=== PATIENT | female | born 1985 | race African-American/Black ===

== ENCOUNTER 2018-08-22 20:15 | Observation (INO) | payer OTHER ==
[2018-08-22 22:18] LABS: ADD UMIC YES; UR ASCORBIC ACID NEGATIVE (NEGATIVE); UR BACTERIA FEW /HPF (NONE SEEN); UR BILIRUBIN (Dip) NEGATIVE (NEGATIVE); UR BLOOD (Dip) NEGATIVE (NEGATIVE); UR CLARITY SLIGHTLY CLOUDY (CLEAR); UR COLOR YELLOW (YELLOW); UR GLUCOSE (Dip) NEGATIVE (NEGATIVE); UR KETONES (Dip) NEGATIVE (NEGATIVE); UR LEUKOCYTE ESTERASE (Dip) 2+ Leu/ul (NEGATIVE); UR NITRITE (Dip) NEGATIVE (NEGATIVE); UR RBC 3 /HPF (0-5); UR SPECIFIC GRAVITY (Dip) 1.012 (1.003-1.030); UR SQUAMOUS EPITHELIAL CELL FEW /HPF (FEW); UR TOTAL PROTEIN (Dip) NEGATIVE (NEGATIVE); UR UROBILINOGEN (Dip) NEGATIVE (NEGATIVE); UR WBC 8 /HPF (0-5)
[2018-08-22] MEDS: TERBUTALINE 1 MG/ML INJ SC (23:04)
[2018-08-22] MEDS: LACTATED RINGER'S 1,000 ML IV (23:40)
[2018-08-23 00:21] LABS: ADD MAN DIFF? NO
[2018-08-23 00:24] LABS: WHITE BLOOD COUNT 8.5 10^3/ul (4.8-10.8)
[2018-08-23 00:24] LABS: BASOPHILS % 0.4 % (0.0-2.0); EOSINOPHILS % 0.5 % (0.0-7.0); HEMATOCRIT 32.2 % (37.0-47.0); HEMOGLOBIN 10.1 g/dl (12.0-16.0); LYMPHOCYTES # 2.1 10^3/ul (0.8-2.9); LYMPHOCYTES % 24.4 % (15.0-51.0); MEAN CORPUSCULAR HEMOGLOBIN 28.1 pg (29.0-33.0); MEAN CORPUSCULAR HGB CONC 31.4 g/dl (32.0-37.0); MEAN CORPUSCULAR VOLUME 89.4 fl (82.0-101.0); MEAN PLATELET VOLUME 11.7 fl (7.4-10.4); MONOCYTE # 0.5 10^3/ul (0.3-0.9); MONOCYTES % 5.5 % (0.0-11.0); NEUTROPHIL # 5.8 10^3/ul (1.6-7.5); NEUTROPHILS % 68.7 % (39.0-77.0); PLATELET COUNT 172 10^3/UL (140-415); RED CELL DISTRIBUTION WIDTH 13.4 % (11.5-14.5)
[2018-08-23] MEDS ORDERED: MISOPROSTOL 200 MCG TAB PR (00:30)
[2018-08-23] MEDS ORDERED: CARBOPROST 250 MCG INJ IM (00:30)
[2018-08-23] MEDS ORDERED: METHYLERGONOVINE 0.2 MG INJ IM (00:30)
[2018-08-23] MEDS ORDERED: OXYTOCIN 30 UNITS/LR 500 ML IV ×2 (00:30)
[2018-08-23] MEDS: LACTATED RINGER'S 1,000 ML IV (00:34)
[2018-08-23] MEDS: TERBUTALINE 1 MG/ML INJ SC (00:34)
[2018-08-23] MEDS: CEFAZOLIN 1 GM/50 ML (PMX) 50 ML IVPB (00:35)
[2018-08-23 00:42] LABS: INR 0.91; PROTIME 12.4 Sec (11.9-14.9)
[2018-08-23 00:43] LABS: PARTIAL THROMBOPLASTIN TIME 26.4 Sec (23.0-35.0)
[2018-08-23] MEDS ORDERED: CEFAZOLIN 3 GM in DEXTROSE 5% 100 ML IV (01:00)
[2018-08-23 01:15] LABS: HEPATITIS B SURFACE ANTIGEN NEGATIVE (NEGATIVE)
[2018-08-23 01:59] LABS: HIV 1&2 ANTIBODY NEGATIVE (NEGATIVE)
[2018-08-23] MEDS ORDERED: AZITHROMYCIN 500MG/NS (PMX) 250 ML IV (02:00)
[2018-08-23] MEDS: BETAMET NA PHOS/AC(6 MG/ML) 2 ML INJ SYG IM (02:03)
[2018-08-23 16:22] LABS: RAPID PLASMA REAGIN NONREACTIVE (NR)
[2018-08-24] MEDS ORDERED: BETAMET NA PHOS/AC(6 MG/ML) 2 ML INJ SYG IM (02:00)
== END 2018-08-23 09:11 | disposition home or self-care (01) ==
LOC: OBT 20:15 → L-D 20:16
DX: O47.03 False labor before 37 completed weeks of gestation, third trimester (principal); Z3A.36 36 weeks gestation of pregnancy
CPT/HCPCS: 76815; 76818; 81001; 85025; 85610; 85730; 86592; 86703; 86762; 86850; 86900; 86901; 87086; 87340; 96360; 96372; 99217

== ENCOUNTER 2018-08-28 21:14 | Inpatient (IN) | payer OTHER ==
[2018-08-28 22:02] LABS: ADD UMIC YES; UR ASCORBIC ACID NEGATIVE (NEGATIVE); UR BACTERIA FEW /HPF (NONE SEEN); UR BILIRUBIN (Dip) NEGATIVE (NEGATIVE); UR BLOOD (Dip) NEGATIVE (NEGATIVE); UR CLARITY SLIGHTLY CLOUDY (CLEAR); UR COLOR YELLOW (YELLOW); UR GLUCOSE (Dip) NEGATIVE (NEGATIVE); UR KETONES (Dip) 2+ mg/dL (NEGATIVE); UR LEUKOCYTE ESTERASE (Dip) TRACE Leu/ul (NEGATIVE); UR MUCUS FEW /HPF (NONE SEEN); UR NITRITE (Dip) NEGATIVE (NEGATIVE); UR RBC 1 /HPF (0-5); UR SPECIFIC GRAVITY (Dip) 1.026 (1.003-1.030); UR SQUAMOUS EPITHELIAL CELL MODERATE /HPF (FEW); UR TOTAL PROTEIN (Dip) NEGATIVE (NEGATIVE); UR UROBILINOGEN (Dip) 2+ mg/dL (NEGATIVE); UR WBC 2 /HPF (0-5)
[2018-08-28] MEDS: LACTATED RINGER'S 1,000 ML IV ×2 (22:48→23:53)
[2018-08-28] MEDS: TERBUTALINE 1 MG/ML INJ SC (22:52)
[2018-08-29] MEDS: TERBUTALINE 1 MG/ML INJ SC (00:06)
[2018-08-29] MEDS ORDERED: OXYTOCIN 30 UNITS/LR 500 ML IV ×5 (01:00→09:30)
[2018-08-29] MEDS ORDERED: METHYLERGONOVINE 0.2 MG INJ IM ×3 (01:00→09:30)
[2018-08-29] MEDS ORDERED: MISOPROSTOL 200 MCG TAB PR ×3 (01:00→09:30)
[2018-08-29] MEDS ORDERED: CARBOPROST 250 MCG INJ IM ×3 (01:00→09:30)
[2018-08-29 01:20] LABS: ADD MAN DIFF? NO
[2018-08-29 01:22] LABS: WHITE BLOOD COUNT 8.9 10^3/ul (4.8-10.8)
[2018-08-29 01:22] LABS: BASOPHILS % 0.2 % (0.0-2.0); EOSINOPHILS % 0.1 % (0.0-7.0); HEMATOCRIT 32.3 % (37.0-47.0); LYMPHOCYTES # 1.7 10^3/ul (0.8-2.9); LYMPHOCYTES % 19.4 % (15.0-51.0); MEAN CORPUSCULAR HEMOGLOBIN 27.5 pg (29.0-33.0); MEAN CORPUSCULAR VOLUME 88.7 fl (82.0-101.0); MEAN PLATELET VOLUME 12.4 fl (7.4-10.4); MONOCYTE # 0.5 10^3/ul (0.3-0.9); MONOCYTES % 5.2 % (0.0-11.0); NEUTROPHIL # 6.6 10^3/ul (1.6-7.5); NEUTROPHILS % 74.9 % (39.0-77.0); PLATELET COUNT 199 10^3/UL (140-415); RED BLOOD COUNT 3.64 10^6/ul (4.20-5.40); RED CELL DISTRIBUTION WIDTH 13.8 % (11.5-14.5)
[2018-08-29 01:26] LABS: INR 0.92; PROTIME 12.5 Sec (11.9-14.9)
[2018-08-29] MEDS: LACTATED RINGER'S 1,000 ML IV ×4 (03:19→21:18)
[2018-08-29] MEDS ORDERED: EPHEDrine 25 MG/5 ML SYG (07:00)
[2018-08-29] MEDS ORDERED: ONDANSETRON 4 MG INJ IV ×3 (07:30→11:00)
[2018-08-29] MEDS ORDERED: DIPHENHYDRAMINE 25 MG CAP PO (07:30)
[2018-08-29] MEDS ORDERED: LANOLIN HPA 1 PKT TOP (07:30)
[2018-08-29] MEDS ORDERED: NACL 0.9% 3 ML SYG IV ×2 (07:30→09:30)
[2018-08-29] MEDS ORDERED: WITCH HAZEL/GLYCERIN PAD PR (07:30)
[2018-08-29] MEDS ORDERED: OXYCODONE/ASPIRIN (4.88/325) TAB PO ×2 (07:30)
[2018-08-29] MEDS ORDERED: CITRIC ACID/NA CITRATE 30 ML CUP (07:39)
[2018-08-29] MEDS ORDERED: METOCLOPRAMIDE 10 MG INJ (07:52)
[2018-08-29] MEDS ORDERED: KETOROLAC 30 MG INJ (07:52)
[2018-08-29] MEDS ORDERED: morphine SULFATE/PF (10 MG/10 ML) INJ (07:52)
[2018-08-29] MEDS: CITRIC ACID/NA CITRATE 30 ML CUP PO (08:59)
[2018-08-29] MEDS: CEFAZOLIN 3 GM in DEXTROSE 5% 100 ML IV (09:00)
[2018-08-29] MEDS ORDERED: SENNA/DOCUSATE NA (8.6MG/50MG) TAB PO (09:00)
[2018-08-29] MEDS ORDERED: OXYCODONE/ACETAMINOPHEN (5/325) TAB PO (09:30)
[2018-08-29] MEDS ORDERED: morphine (1 MG/ML) 10ML SYRINGE IV ×3 (11:00)
[2018-08-29] MEDS ORDERED: morphine 2 MG INJ IV ×3 (11:00)
[2018-08-29] MEDS ORDERED: KETOROLAC 30 MG INJ IV (11:00)
[2018-08-29] MEDS ORDERED: NALOXONE (0.4 MG/ML) INJ IV (11:00)
[2018-08-29] MEDS ORDERED: DIPHENHYDRAMINE 50 MG INJ IV ×2 (11:00)
[2018-08-29] MEDS: OXYTOCIN 30 UNITS/LR 500 ML IV (11:46)
[2018-08-29] MEDS ORDERED: IBUPROFEN 600 MG TAB PO (12:00)
[2018-08-29] MEDS ORDERED: IBUPROFEN 800 MG TAB PO (14:00)
[2018-08-29 15:04] LABS: RAPID PLASMA REAGIN NONREACTIVE (NR)
[2018-08-29] MEDS: CEFAZOLIN 2 GM/50 ML (PMX) 50 ML IVPB ×2 (18:09→23:43)
[2018-08-29] MEDS: LANOLIN HPA 1 PKT TOP (18:09)
[2018-08-30] MEDS: KETOROLAC 30 MG INJ IV (05:28)
[2018-08-30 06:57] LABS: ADD MAN DIFF? NO
[2018-08-30 07:01] LABS: BASOPHILS % 0.2 % (0.0-2.0); EOSINOPHILS % 0.1 % (0.0-7.0); HEMATOCRIT 30.3 % (37.0-47.0); HEMOGLOBIN 9.5 g/dl (12.0-16.0); MEAN CORPUSCULAR HGB CONC 31.4 g/dl (32.0-37.0); MEAN CORPUSCULAR VOLUME 89.4 fl (82.0-101.0); MEAN PLATELET VOLUME 11.9 fl (7.4-10.4); MONOCYTE # 0.5 10^3/ul (0.3-0.9); MONOCYTES % 5.7 % (0.0-11.0); NEUTROPHIL # 7.4 10^3/ul (1.6-7.5); NEUTROPHILS % 82.4 % (39.0-77.0); PLATELET COUNT 185 10^3/UL (140-415); RED BLOOD COUNT 3.39 10^6/ul (4.20-5.40); RED CELL DISTRIBUTION WIDTH 13.6 % (11.5-14.5)
[2018-08-30 07:01] LABS: WHITE BLOOD COUNT 8.9 10^3/ul (4.8-10.8)
[2018-08-30] MEDS: CEFAZOLIN 2 GM/50 ML (PMX) 50 ML IVPB (07:46)
[2018-08-30] MEDS: OXYCODONE/ACETAMINOPHEN (5/325) TAB PO (15:11)
[2018-08-30] MEDS: DOCUSATE SODIUM 100 MG CAP PO (20:58)
[2018-08-30] MEDS: POLYSACCHARIDE IRON COMPLEX CAP PO (20:58)
[2018-08-30] MEDS: LACTATED RINGER'S 1,000 ML IV ×3 (20:58→22:21)
[2018-08-30] MEDS: IBUPROFEN 800 MG TAB PO (23:14)
[2018-08-31] MEDS: LACTATED RINGER'S 1,000 ML IV ×3 (03:30→19:30)
[2018-08-31] MEDS: IBUPROFEN 800 MG TAB PO ×3 (05:35→22:07)
[2018-08-31] MEDS: POLYSACCHARIDE IRON COMPLEX CAP PO ×2 (08:48→20:35)
[2018-08-31] MEDS: DOCUSATE SODIUM 100 MG CAP PO ×2 (08:48→20:35)
[2018-08-31] MEDS ORDERED: MEASLES,MUMPS,RUBELLA VACCINE INJ SC* (09:00)
[2018-09-01] MEDS: LACTATED RINGER'S 1,000 ML IV ×2 (03:30→11:30)
[2018-09-01] MEDS: IBUPROFEN 800 MG TAB PO (06:32)
[2018-09-01] MEDS: POLYSACCHARIDE IRON COMPLEX CAP PO (08:52)
[2018-09-01] MEDS: DOCUSATE SODIUM 100 MG CAP PO (08:52)
[2018-09-01] MEDS: DIPHTH/TET/ACEL PERTUSS (ADULT) 0.5 ML VIAL IM* (11:52)
[2018-09-01] MEDS: MEASLES,MUMPS,RUBELLA VACCINE INJ SC* (11:54)
== END 2018-09-01 13:05 | disposition home or self-care (01) | DRG 785 ==
LOC: OBT 21:14 → L-D 21:15 → PP1 08-29 14:24
PROC: 10D00Z1 Extraction of Products of Conception, Low, Open Approach (ICD-10-PCS; principal; 2018-08-29 08:30)
PROC: 0UT70ZZ Resection of Bilateral Fallopian Tubes, Open Approach (ICD-10-PCS; 2018-08-29 08:30)
DX: O65.5 Obstructed labor due to abnormality of maternal pelvic organs (principal); O34.211 Maternal care for low transverse scar from previous cesarean delivery; Z3A.37 37 weeks gestation of pregnancy; Z37.0 Single live birth; Z30.2 Encounter for sterilization
CPT/HCPCS: 36415; 81001; 85025; 85610; 85730; 86592; 86850; 86900; 86901; 87086; 88302; 90715; 96360; 96361; 96372; 99464